=== PATIENT | female | born 1980 | race American Indian/Alaskan Native ===

== ENCOUNTER 2018-12-17 08:10 | Emergency (ER) | payer OTHER ==
[2018-12-17] MEDS ORDERED: ZOFRAN ODT PO ONE (08:39)
--- NOTE | 2018-12-17 08:39 | Emergency Department Report ---
HPI - General Chief Complaint: Pain General Time Seen by Provider: 12/17/18 08:33 - HPI HPI: This is a 38-year-old -[place] female who presents to the emergency department with a five-day history of increased fatigue, generalized weakness, nausea and vomiting. The patient has some history of "thyroid problems" but is unable to say whether she is over or under active. She also has a history of a left oophorectomy secondary to multiple cysts. 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 She has not taken anything for her symptoms prior to arrival. No recent travel or sick contacts at home. She denies any chest pain, shortness of breath, cough, fever. ED Past Medical Hx - Past Medical History Previous Medical History?: No Hx Psychiatric Treatment: No Additional medical history: thyroid - Surgical History Past Surgical History?: Yes Additional Surgical History: 2011 oopherectomy - Social History Smoking Status: Never Smoker Substance Use Type: None - Medications Home Medications: Home Medications Medication Instructions Recorded Confirmed Last Taken Type Cyproheptadine [Periactin] 4 mg PO BID 08/12/13 08/12/13 08/11/13 History Sertraline [Zoloft] 50 mg PO QDAY 08/12/13 08/12/13 Unknown History Ondansetron [Zofran Odt] 4 mg PO Q8HR PRN #14 tab.rapdis 12/17/18 Unknown Rx ED Review of Systems ROS: Stated complaint: HEADACHE/WEAKNESS Other details as noted in HPI Constitutional: chills, weakness, other (fatigue). denies: fever Eyes: denies: eye pain, vision change ENT: denies: ear pain, throat pain Respiratory: denies: cough, shortness of breath Cardiovascular: denies: chest pain, palpitations Gastrointestinal: nausea, vomiting Genitourinary: denies: dysuria, discharge Musculoskeletal: myalgia. denies: back pain Skin: denies: rash, lesions Neurological: denies: headache, numbness, paresthesias Physical Exam - Physical Exam Vital Signs: Vital Signs 12/17/18 08:14 Temperature 98.0 F Pulse Rate 91 H Respiratory 18 Rate Blood Pressure 123/81 O2 Sat by Pulse 100 Oximetry Physical Exam: GENERAL: The patient is well-developed well-nourished. HEENT: Normocephalic. Atraumatic. Patient has moist mucous membranes. Oropharynx is clear without tonsillar hypertrophy, erythema or exudates. EYES: Extraocular motions are intact. Pupils are equal and reactive to light bilaterally. No nystagmus. NECK: Supple. Trachea is midline. CHEST/LUNGS: Clear to auscultation. There is no respiratory distress noted. HEART/CARDIOVASCULAR: Regular. There is no tachycardia. There is no obvious murmur. ABDOMEN: Abdomen is soft, nontender. Patient has normal bowel sounds. There is no abdominal distention. SKIN: Skin is warm and dry. NEURO: The patient is awake, alert, and oriented. The patient is cooperative. The patient has no focal neurologic deficits. The patient has normal speech. Cranial nerves II through XII grossly intact. MUSCULOSKELETAL: There is no tenderness or deformity. There is no limitation range of motion. There is no evidence of acute injury. ED Course Vital Signs 12/17/18 08:14 Temperature 98.0 F Pulse Rate 91 H Respiratory 18 Rate Blood Pressure 123/81 O2 Sat by Pulse 100 Oximetry ED Medical Decision Making - Lab Data Result diagrams: 12/17/18 08:37 12/17/18 08:37 - Medical Decision Making Patient presents to the emergency department with a few days of some generalized weakness and fatigue, nausea and vomiting. Since being in the emergency Department there has been no further nausea or vomiting. She does not have any focal, motor or sensory deficits in her cranial nerves are intact. Labs have been unremarkable including a CBC, metabolic panel, TSH, urinalysis and test. The patient did have a slight hypokalemia that was replaced with potassium chloride. She passed an oral challenge prior to discharge. She has been discharged home to follow up with her primary care physician and has been given a prescription for Zofran for any further nausea or vomiting. She will return to the ER with any worsening of her symptoms or any acute distress. - Differential Diagnosis viral syndrome, hypothyroidism, electrolyte abnormalities, UTI, Critical Care Time: No Critical care attestation.: If time is entered above; I have spent that time in minutes in the direct care of this critically ill patient, excluding procedure time. ED Disposition Clinical Impression: Hypokalemia Fatigue Qualifiers: Fatigue type: unspecified Qualified Code(s): R53.83 - Other fatigue Nausea & vomiting Qualifiers: Vomiting type: unspecified Vomiting Intractability: non-intractable Qualified Code(s): R11.2 - Nausea with vomiting, unspecified Disposition: DC-01 TO HOME OR SELFCARE Is pt being admited?: No Condition: Stable Instructions: Hypokalemia (ED), Acute Nausea and Vomiting (ED), Fatigue (ED) Additional Instructions: Please follow up with a primary care physician in the next few days. Return to the emergency Department with any worsening of your symptoms or any acute distress. Increase your rehydration. Prescriptions: Ondansetron [Zofran Odt] 4 mg PO Q8HR PRN #14 tab.rapdis PRN Reason: Nausea Referrals: PAMELA BUCKLEY DO [Staff Physician] - 3-5 Days [facility] [Outside] - 3-5 Days Forms: Work/School Release Form(ED) Time of Disposition: 10:07
[2018-12-17 08:51] LABS: Basophils % (Auto) 0.4 % (0.0-1.8); Eosinophils # (Auto) 0.1 K/mm3 (0.0-0.4); Eosinophils % (Auto) 0.5 % (0.0-4.3); Hematocrit 39.9 % (30.3-42.9); Hemoglobin 12.4 gm/dl (10.1-14.3); Lymphocytes # (Auto) 2.4 K/mm3 (1.2-5.4); Lymphocytes % (Auto) 21.7 % (13.4-35.0); Mean Corpuscular HGB Conc 31 % (30-34); Mean Corpuscular Volume 69 fl (79-97); Monocytes # (Auto) 0.9 K/mm3 (0.0-0.8); Monocytes % (Auto) 7.8 % (0.0-7.3); Platelet Count 253 K/mm3 (140-440); Red Blood Count 5.75 M/mm3 (3.65-5.03)
[2018-12-17 09:06] LABS: BUN/Creatinine Ratio 12; Blood Urea Nitrogen 11 mg/dL (7-17); Calcium 9.6 mg/dL (8.4-10.2); Hemolysis Index 19
[2018-12-17] MEDS ORDERED: K-DUR PO NR (09:30)
[2018-12-17] MEDS ORDERED: K-DUR PO ONE (09:57)
[2018-12-17 10:52] VITALS: BP 107/64
== END 2018-12-17 10:19 | disposition home or self-care (01) ==
LOC: ED 08:10
DX: R53.83 Other fatigue (principal); R53.1 Weakness; R11.2 Nausea with vomiting, unspecified; E87.6 Hypokalemia
CPT/HCPCS: 36415; 80048; 84443; 84703; 85025; Q0162